=== PATIENT | female | born 1975 | race Caucasian/White ===

== ENCOUNTER 2016-12-14 11:15 | Emergency (ER) | payer BC ==
[~2016-12-14] VITALS: Ht 170.2 cm; Wt 114.0 kg
[2016-12-14] MEDS ORDERED: KETOROLAC 60 MG/2 ML (TORADOL) VIAL IM ONE (11:55)
[2016-12-14] MEDS ORDERED: PROMETHAZINE 25 MG/ML (PHENERGAN) 1 ML VIAL IM ONE (11:55)
[2016-12-14] MEDS ORDERED: HYDROmorphone 2 MG/ML (DILAUDID) 1 ML SYRINGE IM ONE (11:55)
[2016-12-14 12:12] VITALS: BP 129/73
== END 2016-12-14 12:15 | disposition home or self-care (01) ==
LOC: EDUNIT# 11:15 → ED 11:16
DX: G43.909 Migraine, unspecified, not intractable, without status migrainosus (principal)
CPT/HCPCS: 96372; 99283; J1170; J1885; J2550; 99282

== ENCOUNTER 2017-01-05 17:12 | Emergency (ER) | payer BC ==
[~2017-01-05] VITALS: Ht 167.6 cm; Wt 113.6 kg
[2017-01-05 20:05] LABS: BASOPHILS % (AUTO) 0 % (0-2); EOSINOPHILS # (AUTO) 0.1 10^3uL; EOSINOPHILS % (AUTO) 1 % (0-4); LYMPHOCYTES # (AUTO) 0.8 X10^3; MEAN CORPUSCULAR VOLUME 89 FL (80-100); MEAN PLATELET VOLUME 9.8 FL (6.0-9.5); MONOCYTES # (AUTO) 0.5 X10^3; MONOCYTES % (AUTO) 8 % (3-11); NEUTROPHILS # (AUTO) 4.7 X10^3; NEUTROPHILS % (AUTO) 77 % (51-67); PLATELET COUNT 206 10^3uL (150-450); WHITE BLOOD COUNT 6.09 10^3uL (4.0-11.0)
[2017-01-05 20:08] LABS: INFLUENZA VIRUS TYPE A ANTIBOD Positive (NEGATIVE); INFLUENZA VIRUS TYPE B ANTIBOD Negative (NEGATIVE)
[2017-01-05 20:11] LABS: MEAN CORPUSCULAR HEMOGLOBIN 32.6 PG (26.0-34.0); MEAN CORPUSCULAR HGB CONC 36.5 g/dL (31.0-37.0)
[2017-01-05 20:13] LABS: ANION GAP 18.2 MEQ/L (3-15)
[2017-01-05] MEDS ORDERED: KETOROLAC 60 MG/2 ML (TORADOL) VIAL IM ONE (20:55)
[2017-01-05] MEDS ORDERED: ED- AZITHROMYCIN 250 MG (ZITHROMAX) 3 TABLETS/BTL PO ONE (21:05)
[2017-01-05 21:23] VITALS: BP 113/60
== END 2017-01-05 21:15 | disposition home or self-care (01) ==
LOC: ED 17:12
DX: J11.1 Influenza due to unidentified influenza virus with other respiratory manifestations (principal); E11.65 Type 2 diabetes mellitus with hyperglycemia; Z79.4 Long term (current) use of insulin; M79.1 Myalgia; F17.210 Nicotine dependence, cigarettes, uncomplicated
CPT/HCPCS: 36415; 71020; 80048; 85025; 87502; 96372; 99283; J1885

== ENCOUNTER → 2017-01-05 | Outpatient (CLI) | payer BC | LOC: EMS 17:00 | DX: Z53.20 Procedure and treatment not carried out because of patient's decision for unspecified reasons (principal) ==

== ENCOUNTER 2017-01-15 11:50 | Emergency (ER) | payer BC ==
[~2017-01-15] VITALS: Ht 167.6 cm; Wt 113.0 kg
[2017-01-15 12:26] LABS: BASOPHILS % (AUTO) 0 % (0-2); EOSINOPHILS # (AUTO) 0.2 10^3uL; EOSINOPHILS % (AUTO) 3 % (0-4); LYMPHOCYTES # (AUTO) 2.3 X10^3; MEAN CORPUSCULAR VOLUME 90 FL (80-100); MEAN PLATELET VOLUME 9.6 FL (6.0-9.5); MONOCYTES # (AUTO) 0.6 X10^3; MONOCYTES % (AUTO) 8 % (3-11); NEUTROPHILS # (AUTO) 4.5 X10^3; NEUTROPHILS % (AUTO) 59 % (51-67); PLATELET COUNT 330 10^3uL (150-450); WHITE BLOOD COUNT 7.66 10^3uL (4.0-11.0)
[2017-01-15 12:28] LABS: MEAN CORPUSCULAR HEMOGLOBIN 32.7 PG (26.0-34.0); MEAN CORPUSCULAR HGB CONC 36.4 g/dL (31.0-37.0)
[2017-01-15 12:28] LABS: BILIRUBIN,URINE Negative (Negative); CLARITY,URINE Clear; COLOR,URINE Orange; GLUCOSE, URINE (UA) 2+ (Negative); LEUKOCYTE ESTERASE ,URINE Negative (Negative)
[2017-01-15 12:32] LABS: URINE CENTRIFUGED VOLUME 12 mL
[2017-01-15 12:36] LABS: RBC,URINE 0-2 /HPF
[2017-01-15 12:46] LABS: ALBUMIN 4.1 g/dL (3.4-5.0); ANION GAP 17.5 MEQ/L (3-15); CALCULATED IONIZED CALCIUM 4.2 mg/dL (3.8-4.6); TOTAL PROTEIN 7.2 g/dL (6.4-8.5)
[2017-01-15] MEDS ORDERED: INSULIN REGULAR 1 UNIT/0.01 ML DOSE SC ONE (13:20)
[2017-01-15] MEDS ORDERED: KETOROLAC 30 MG/ML (TORADOL) 1 ML VIAL IV ONE (13:50)
[2017-01-15] MEDS ORDERED: SODIUM CHLORIDE FLUSH 10 ML ONE (13:53)
[2017-01-15 14:11] VITALS: BP 119/48
== END 2017-01-15 14:08 | disposition home or self-care (01) ==
LOC: ED 11:51
DX: N39.0 Urinary tract infection, site not specified (principal); E11.65 Type 2 diabetes mellitus with hyperglycemia; Z79.4 Long term (current) use of insulin
CPT/HCPCS: 36415; 80053; 81003; 81015; 85025; 87088; 96361; 96374; 99284; J1815; J1885; J7030; 87077; 87186; 99282

== ENCOUNTER 2017-01-26 17:28 | Emergency (ER) | payer BC ==
[~2017-01-26] VITALS: Ht 167.6 cm; Wt 114.0 kg
[2017-01-26] MEDS ORDERED: HYDROmorphone 2 MG/ML (DILAUDID) 1 ML SYRINGE IM ONE (18:30)
[2017-01-26] MEDS ORDERED: diphenhydrAMINE 50 MG/ML INJ (BENADRYL) IM ONE (18:30)
[2017-01-26] MEDS ORDERED: PROMETHAZINE 25 MG/ML (PHENERGAN) 1 ML VIAL IM ONE (18:30)
[2017-01-26] MEDS ORDERED: KETOROLAC 60 MG/2 ML (TORADOL) VIAL IM ONE (18:30)
[2017-01-26] MEDS ORDERED: HYDROmorphone 1 MG/ML (DILAUDID) SYRINGE IM ONE (19:05)
[2017-01-26] MEDS ORDERED: DEXAMETHASONE 10 MG/ML (DECADRON) VIAL IM ONE (19:05)
[2017-01-26 19:58] VITALS: BP 136/77
== END 2017-01-26 19:55 | disposition home or self-care (01) ==
LOC: ED 17:28
DX: G43.909 Migraine, unspecified, not intractable, without status migrainosus (principal)
CPT/HCPCS: 96372; 99283; J1100; J1170; J1200; J1885; J2550

== ENCOUNTER 2017-02-14 11:02 | Emergency (ER) | payer BC ==
[~2017-02-14] VITALS: Ht 167.6 cm; Wt 112.0 kg
[2017-02-14] MEDS ORDERED: ORPHENADRINE 60 MG/2 ML (NORFLEX) AMP IM ONE (11:55)
[2017-02-14] MEDS ORDERED: ONDANSETRON 4 MG (ZOFRAN) ORAL DISSOLVE TAB PO ONE (11:55)
[2017-02-14] MEDS ORDERED: HYDROmorphone 2 MG/ML (DILAUDID) 1 ML SYRINGE IM ONE (11:55)
[2017-02-14 12:33] VITALS: BP 123/86
== END 2017-02-14 12:34 | disposition home or self-care (01) ==
LOC: ED 11:02
DX: S39.012A Strain of muscle, fascia and tendon of lower back, initial encounter (principal); X50.9XXA Other and unspecified overexertion or strenuous movements or postures, initial encounter; Y93.F9 Activity, other caregiving; Y92.009 Unspecified place in unspecified non-institutional (private) residence as the place of occurrence of the external cause
CPT/HCPCS: 99283; J1170; J2360; 96372

== ENCOUNTER 2017-03-16 18:17 | Emergency (ER) | payer BC ==
[~2017-03-16] VITALS: Ht 167.6 cm; Wt 113.0 kg
[~2017-03-16 18:17] MED LIST: ACET325T38 PO; ALBU8.5H6 IH; ALPR0.5T PO; ASPI1TAB22 PO; ATOR20TA PO; AZIT250T PO; AZIT250T81 PO; BENZ-22 PO; BISO1TAB8 PO; BUSP10TA95 PO; CANA100T PO; CANA1TAB6 PO; CHLO500T2 PO; CIPR-226 PO; CYCL10TA45 PO; DIAZ5TAB3 PO; DIPH25CA79 PO; DIVA250T4 PO; DULO20CA PO; DULO60CA7 PO; EPIN0.3P2 IM; ESCI10TA PO; FLUO20CA42 PO; GBPN100C PO; GFN600TCR PO; HCT25T PO; HYDR-3702 PO; HYDR-3754 PO; HYDR-4131 PO; INDO50CA PO; INSU100V2 SQ; INSU100V32 SQ; INSU100V8 SC; INSU300I SQ; LISI-595 PO; LISI2.5T85 PO; METF500T PO; METO25TA60 PO; NFMET1000 PO; OMEP20TA PO; ONDA4TAB11 PO; ONDA8TAB6 PO; ONDAN4ODT PO; OXYC-109 PO; OXYC1TAB87 PO; PHEN-639 PO; PRCD5U PO; PREG25CA PO; PREG50C PO; PROM25TA5 PO; SULF-221 PO; SUMA6NDL SQ; TRM50T PO
--- OUTSIDE RECORDS SUMMARY | 2017-03-16 18:22 | XMS REPORT | Continuity of Care Document ---
Author Author [facility] Address Unknown Phone Unavailable Care Team Providers Care Er Registrar Name Role Phone BRIA, COSMO Ascencio MD PCP [phone] Insurance Providers Payer Name Policy Number Subscriber Name Relationship [facility] [id number] Suellen Howard 01 Advance Directives Directive Response Recorded Date/Time Advanced Directives No 01/26/17 5:45pm Type Living Will 01/26/17 5:45pm Chief Complaint and Reason for Visit Chief Complaint Pain Reason for Visit [id number] Problems Active Problems Medical Problem Onset Date Status ALLERGY, UNSPECIFIED ~02/20/2014 Resolved Abdominal pain 10/12/2014 Resolved Abdominal pain ~10/12/2014 Resolved Abdominal pain ~03/09/2015 Resolved Acute and chronic respiratory failure with hypoxia ~11/18/2015 Chronic Acute pancreatitis 04/10/2013 Resolved Allergic reaction ~05/30/2016 Resolved Ankle sprain ~01/05/2017 Acute Anxiety disorder Unknown Chronic Back pain ~07/02/2016 Resolved Bilateral leg edema Unknown Acute Biliary colic ~10/12/2014 Resolved Bronchitis Unknown Chronic Bronchospasm, acute Unknown Resolved Cervical strain ~07/02/2016 Chronic Cholecystectomy 04/26/2013 Resolved Concussion ~07/02/2016 Resolved Cough Unknown Acute DKA (diabetic ketoacidoses) 06/06/2015 Resolved Dehydration 06/06/2015 Resolved Diabetes mellitus Unknown Chronic Fall ~07/02/2016 Resolved Gastroenteritis Unknown Resolved Gastroesophageal reflux disease 03/18/2013 Resolved Headache ~08/16/2016 Chronic Hyperglycemia Unknown Acute Influenza ~01/05/2017 Acute Knee pain, left ~01/05/2017 Acute Lower back pain Unknown Resolved Lumbar strain ~07/02/2016 Chronic Migraine 12/17/2015 Chronic Migraine ~08/05/2014 Chronic Migraine ~09/16/2014 Chronic Migraine ~05/23/2015 Chronic Migraine ~09/09/2016 Chronic Opioid dependence ~06/22/2016 Chronic Pedal edema ~07/06/2016 Acute Pneumonia ~12/18/2014 Resolved Sore throat symptom ~02/20/2014 Resolved Upper respiratory infection ~12/18/2014 Resolved Urinary tract infection Unknown Acute Vomiting ~03/09/2015 Resolved Wheezing Unknown Chronic Medications Current Home Medications Medication Dose Units Route Directions Days/Qty Instructions Start Date Insulin Lispro (Insulin Humalog) 100 Unit/1 Ml 35-40 Units Sub-Q Twice A Day With Meals TAKES WITH LUNCH AND SUPPER. 06/27/12 Atorvastatin 20 Mg 20 Mg ORAL Daily 06/27/12 Diphenhydramine Hcl 25 Mg 25 Mg ORAL Every 6 Hours as needed for Itching 02/24/14 Aspirin/Acetaminophen/Caffeine 1 Each 1 Each ORAL As Needed 08/05/14 Acetaminophen 325 Mg 650 Mg ORAL Every 4HRS as needed for Pain AD Divalproex Sodium 250 Mg 250 Mg ORAL Twice A Day 04/02/16 Insulin Glargine,Hum.rec.anlog 300 Unit/1 Ml 300 Unit Sub-Q As Directed 05/08/16 Metoprolol Tartrate 25 Mg 25 Mg ORAL Daily 05/08/16 Epinephrine 0.3 Mg/0.3 Ml 0.3 Mg INTAMUSCULAR As Directed 1 05/30/16 Hydrochlorothiazide 25 Mg 25 Mg ORAL Daily 14 07/06/16 Canagliflozin 100 Mg 100 Mg ORAL As Directed 09/09/16 Promethazine/Codeine (Promethazine/Codeine 6.25MG-10MG/5ML) 5 Ml 5 Ml ORAL Four Times Daily as needed for Cough 60 11/06/16 Duloxetine Hcl 20 Mg Unknown Dose ORAL Daily 02/14/17 Canagliflozin/Metformin Hcl 1 Each 1 Each ORAL Daily 2 02/14/17 Oxycodone/Acetaminophen 1 Tab 1-2 Tab ORAL Every 4HRS as needed for Pain 25 02/14/17 Chlorzoxazone 500 Mg 500 Mg ORAL Four Times Daily 40 02/14/17 Past Home Medications Medication Directions Ordered Status Insulin Glargine,Hum.rec.anlog 100 Unit/1 Ml Vial, 40 Units Sub-Q Bedtime 04/03 Discontinued Metformin Hcl 500 Mg Tablet, 1000 Mg Oral Daily 06/27/12 Discontinued Lisinopril 2.5 Mg Tablet, 10 Mg Oral Daily 06/27/12 Discontinued Diphenhydramine Hcl 25 Mg Capsule, 50 Mg Oral As Needed 06/27/12 Discontinued Alprazolam 0.5 Mg Tablet, 0.5 Mg Oral As Needed 06/27/12 Discontinued Promethazine Hcl 25 Mg Tablet, 1 Tab Oral Q 6H Prn 06/27/12 Discontinued Fluoxetine Hcl 20 Mg Cap, 1 Cap Oral Daily 12/05/12 Discontinued Ciprofloxacin Hcl 250 Mg Tablet, Tab Oral Twice A Day 12/05/12 Discontinued Phenazopyridine Hcl 100 Mg Tablet, Mg Oral Twice A Day 12/05/12 Discontinued Hydrocodone Bit/Acetaminophen 1 Tab Tab, 1 Tab Oral Q 4H Prn 03/18/13 Discontinued Escitalopram Oxalate 10 Mg Tablet, 10 Mg Oral Daily 04/09/13 Discontinued Metformin Hcl 1,000 Mg Tab, 1000 Mg Oral Daily 04/12/13 Discontinued Lisinopril 10 Mg Tab, 10 Mg Oral Daily 04/12/13 Discontinued Ondansetron Hcl 8 Mg Tablet, 8 Mg Oral Every 6 Hours as needed 04/12/13 Discontinued Hydrocodone Bit/Acetaminophen 1 Tab Tab, 1 Tab Oral Every 6 Hours as needed 04/12/13 Discontinued Bisoprolol/Hydrochlorothiazide (Ziac 2.5MG/6.25MG) 1 Each Tablet, 1 Each Oral Daily 04/26/13 Discontinued Sumatriptan Succinate 6 Mg/0.5 Ml Ndl.fr.inj, 6 Mg Sub-Q As Needed 08/05/14 Discontinued Diazepam 5 Mg Tablet, 5 Mg Oral Every 6 Hours as needed for Muscle Spasms 07/06 Discontinued Oxycodone/Acetaminophen 1 Tab Tablet, 1 Tab Oral Every 6 Hours as needed for Pain 10/30/14 Discontinued Azithromycin 250 Mg Tablet, 250 Mg Oral Daily 12/19/14 Discontinued Benzonatate 100 Mg Capsule, 100 Mg Oral Three Times A Day 12/19/14 Discontinued Acetaminophen/Hydrocodone Bitart 1 Each Tablet, 1-2 Tab Oral Every 6 Hours as needed for Pain 03/09/15 Discontinued Cyclobenzaprine Hcl 10 Mg Tablet, 10 Mg Oral Three Times A Day as needed for Spasms 05/26/15 Discontinued Insulin Glargine,Hum.rec.anlog (Lantus) 1 Unit/0.01 Ml Soln, 30 Unit Subcutaneous Bedtime 06/08/15 Discontinued Azithromycin 6 Tab/Pkt Tablet, 250 Mg Oral See Instructions 11/17/15 Discontinued Albuterol Sulfate 1 Inhaler Hfa.aer.ad, 2 Puff Respiratory (Inhalation) Every 4HRS as needed for Dyspnea 11/22/15 Discontinued Guaifenesin 600 Mg Tab, 1200 Mg Oral Twice A Day 11/22/15 Discontinued Ondansetron 4 Mg Tab.rapdis, 4 Mg Oral Every 6 Hours as needed for Nausea Discontinued Omeprazole 20 Mg Tablet.dr, 20 Mg Oral Daily 11/22/15 Discontinued Oxycodone/Acetaminophen 1 Each Tablet, 1 Tab Oral Every 4HRS as needed for Pain 12/10/15 Discontinued Cyclobenzaprine Hcl 10 Mg Tablet, 10 Mg Oral Three Times A Day as needed for Spasms 12/10/15 Discontinued Duloxetine Hcl 60 Mg Capsule.dr, 60 Mg Oral Daily 12/17/15 Discontinued Pregabalin 25 Mg Capsule, 150 Cap Oral Twice A Day 12/17/15 Discontinued Oxycodone/Acetaminophen 1 Tab Tablet, 1 Tab Oral Every 6 Hours as needed for Headache 12/17/15 Discontinued Tramadol Hcl (Ultram) 50 Mg Tablet, 1-2 Tab Oral Every 6 Hours as needed for Pain 01/19/16 Discontinued Ondansetron Hcl 4 Mg Tab.rapdis, 4 Mg Oral Every 4HRS 02/24/16 Discontinued Buspirone Hcl (Buspar) 10 Mg Tablet, 10 Mg Oral Daily 02/27/16 Discontinued Pregabalin 50 Mg Cap, 150 Mg Oral Twice A Day 03/02/16 Discontinued Oxycodone/Acetaminophen 1 Tab Tablet, 1 Tab Oral Three Times A Day as needed for Pain 03/02/16 Discontinued Divalproex Sodium 250 Mg Tablet.dr, 250 Mg Oral Daily 05/08/16 Discontinued Gabapentin (Neurontin) 100 Mg Capsule, 100 Mg Oral Twice A Day 06/05/16 Discontinued Sulfamethoxazole/Trimethoprim (Bactrim Ds 800MG/160MG) 1 Each Tablet, 1 Each Oral Twice A Day 06/05/16 Discontinued Cyclobenzaprine Hcl 10 Mg Tablet, 10 Mg Oral Three Times A Day as needed for Spasms 07/02/16 Discontinued Oxycodone/Acetaminophen 1 Tab Tablet, 1 Tab Oral Every 4HRS as needed for Pain 07/02/16 Discontinued Indomethacin 50 Mg Capsule, 50 Mg Oral Three Times A Day as needed for Pain 07/05/16 Discontinued Azithromycin 250 Mg Tablet, 250 Mg Oral Daily 01/05/17 Discontinued Social History Social History Problem Response Recorded Date/Time Onset Date Status Exposure to occupational hazards No 11/19/2015 2:08am Query Response Start Date Stop Date Smoking Status Current every day smoker Hospital Discharge Instructions No hospital discharge instructions. Plan of Care Discharge Date 02/14/17 12:34pm Disposition 01 HOME OR SELF-CARE Condition at Discharge Stable Instructions/Education Provided Low Back Pain (DC) Prescriptions See Medication Section Referrals COSMO FRASER MD - Additional Instructions/Education use naproxen 375 mgone twice daily on a regular basis. Heat or ice for comfort. Rest as much as possible the next. Follow-up with PCP next week. Some of your test results may not be complete prior to your leaving the Emergency Department. The Emergency Department is not authorized to give test results over the phone. Please contact the doctor's office listed in this packet of information for your final results. Follow up with your primary care physician or return to the Emergency Department for worsening or worrisome symptoms. * Emergency Department phone number: [phone], x [phone]* MEDICAL RECORD If you need copies of your X-rays, call [phone]. If you need copies of your medical record, including lab results, a signed authorization for release of records will be required. A telephone call for release of Health Information is not allowed. BILLING Billing can sometimes be confusing and frustrating. To help avoid confusion in the future, please take a moment to acquaint yourself with the billing parties for services. SERVICE BILLING [employer] Emergency Room Services [facility] Physician Services [facility] X-[facility] [place] [facility] Patients will receive bills for services from the appropriate provider. If you have any questions about your [facility] bill, our staff will be happy to assist you. Please call [phone], and ask for the billing department. THANK YOU for choosing [facility] as your emergency care provider! Care Plan and Goals ~~Discharge Care Plan~~ Problem: Back pain Goal: Decreased level of pain. Return to usual activities. Instructions: Take medication(s) as directed; follow up with your primary care physician as directed; follow patient home care instructions. Apply ice or heat to site for comfort. Functional Status No functional status results. Allergies, Adverse Reactions, Alerts Allergen Type Severity Reaction Status Last Updated Iodine Allergy Unknown Active 01/15/17 shellfish derived Allergy Severe Active 01/15/17 Immunizations Name Given Type Status Date Pneumonia Vaccine Received if Current 04/12/12 Historical Historical Date Influenza Vaccine Received if Current 08/18/16 Historical Historical Vital Signs Acute Vital Signs Vital Response Date/Time Temperature (Fahrenheit) 97.2 02/14/2017 12:33pm Pulse 84 bpm 02/14/2017 12:33pm Respirations 16 02/14/2017 12:33pm Results Laboratory Results Test Name Result Units Flags Reference Collection Date/Time Result Date/ Time Comments White Blood Count 7.66 10^3uL 4.0-11.0 01/15/2017 12:20pm 01/15/2017 12 :28pm Red Blood Count 4.41 10^6uL 4.00-5.00 01/15/2017 12:20pm 01/15/2017 12: 28pm Hemoglobin 14.4 g/dL 12.0-15.5 01/15/2017 12:20pm 01/15/2017 12:28pm Hematocrit 39.60 % 35.00-45.00 01/15/2017 12:20pm 01/15/2017 12:28pm Mean Corpuscular Volume 90 FL 80-100 01/15/2017 12:20pm 01/15/2017 12: 28pm Mean Corpuscular Hemoglobin 32.7 PG 26.0-34.0 01/15/2017 12:20pm 2016 12:28pm Mean Corpuscular Hemoglobin Concent 36.4 g/dL 31.0-37.0 01/15/2017 12: 20pm 01/15/2017 12:28pm Red Cell Distribution Width 11.7 % L 11.8-15.6 01/15/2017 12:20pm 2016 12:28pm Platelet Count 330 10^3uL # 150-450 01/15/2017 12:20pm 01/15/2017 12: 28pm Mean Platelet Volume 9.6 FL H 6.0-9.5 01/15/2017 12:20pm 01/15/2017 12: 28pm Neutrophils (%) (Auto) 59 % 51-67 01/15/2017 12:20pm 01/15/2017 12: 28pm Lymphocytes (%) (Auto) 30 % 20-46 01/15/2017 12:20pm 01/15/2017 12: 28pm Monocytes (%) (Auto) 8 % 3-11 01/15/2017 12:20pm 01/15/2017 12:28pm Eosinophils (%) (Auto) 3 % 0-4 01/15/2017 12:20pm 01/15/2017 12:28pm Basophils (%) (Auto) 0 % 0-2 01/15/2017 12:20pm 01/15/2017 12:28pm Neutrophils # (Auto) 4.5 X10^3 01/15/2017 12:20pm 01/15/2017 12:28pm Lymphocytes # (Auto) 2.3 X10^3 01/15/2017 12:20pm 01/15/2017 12:28pm Monocytes # (Auto) 0.6 X10^3 01/15/2017 12:20pm 01/15/2017 12:28pm Eosinophils # (Auto) 0.2 10^3uL 01/15/2017 12:20pm 01/15/2017 12: 28pm Basophils # (Auto) 0.0 10^3uL 01/15/2017 12:20pm 01/15/2017 12:28pm Volume Urine Centrifuged 12 mL 01/15/2017 12:15pm 01/15/2017 12: 36pm Urine Collection Type CLEAN CATCH 01/15/2017 12:15pm 01/15/2017 12: 36pm Urine Color [place] H 01/15/2017 12:15pm 01/15/2017 12:28pm Urine Clarity Clear 01/15/2017 12:15pm 01/15/2017 12:28pm Urine pH 5.0 5.0 - 8.0 01/15/2017 12:15pm 01/15/2017 12:28pm Urine Specific [place] 1.015 1.005-1.030 01/15/2017 12:15pm 2016 12:28pm Urine Protein Trace H Negative 01/15/2017 12:15pm 01/15/2017 12:28pm Urine Glucose (UA) 2+ H Negative 01/15/2017 12:15pm 01/15/2017 12: 28pm Urine Blood Trace-intact H Negative 01/15/2017 12:15pm 01/15/2017 12: 28pm Urine Ketones Trace H Negative 01/15/2017 12:15pm 01/15/2017 12:28pm Urine Nitrite Positive H Negative 01/15/2017 12:15pm 01/15/2017 12: 28pm Urine Bilirubin Negative Negative 01/15/2017 12:15pm 01/15/2017 12: 28pm Urine Urobilinogen 1.0 mg/dL 0.2-1.0 01/15/2017 12:15pm 01/15/2017 12: 28pm Urine Leukocyte Esterase Negative Negative 01/15/2017 12:15pm 2016 12:28pm Urine Microscopic RBC 0-2 /HPF 01/15/2017 12:15pm 01/15/2017 12:36pm Urine WBC 10-20 /HPF H 01/15/2017 12:15pm 01/15/2017 12:36pm Urine Bacteria 2+ /HPF H 01/15/2017 12:15pm 01/15/2017 12:36pm Urine Squamous Epithelial Cells 10-20 /LPF 01/15/2017 12:15pm 2016 12:36pm Urine Mucus Rare 01/15/2017 12:15pm 01/15/2017 12:36pm Sodium Level 137 mmol/L 135-150 01/15/2017 12:20pm 01/15/2017 12:51pm Potassium Level 4.7 mmol/L # 3.5-5.1 01/15/2017 12:20pm 01/15/2017 12: 51pm Chloride Level 104 mmol/L 98-108 01/15/2017 12:20pm 01/15/2017 12:51pm Carbon Dioxide Level 20 mmol/L L 22-01/15/2017 12:01/15/2017 12: 51pm Anion Gap 17.5 MEQ/L H 3-15 01/15/2017 12:01/15/2017 12:51pm Blood Urea Nitrogen 9 mg/dL 7-18 01/15/2017 12:01/15/2017 12:51pm Creatinine 0.47 mg/dL L 0.6-1.2 01/15/2017 12:01/15/2017 12:51pm BUN/Creatinine Ratio 19 10-01/15/2017 12:01/15/2017 12:51pm Estimat Glomerular Filtration Rate 175.0 01/15/2017 12:2016 12:51pm Estimated GFR (Non- 144.6 01/15/2017 12:2016 12:51pm Glucose Level 292 mg/dL H 70-110 01/15/2017 12:01/15/2017 12:51pm Calculated Osmolality 274 mosm/L L 280-300 01/15/2017 12:2016 12:51pm Calcium Level 9.5 mg/dL 8.8-10.8 01/15/2017 12:01/15/2017 12:51pm Calcium/Ionized Calcium Ratio 4.2 mg/dL 3.8-4.6 01/15/2017 12: 12:51pm Total Bilirubin 1.0 mg/dL # 0.1-1.0 01/15/2017 12:01/15/2017 12: 51pm Alkaline Phosphatase 115 U/L 38-126 01/15/2017 12:01/15/2017 12: 51pm Aspartate Amino Transf (AST/SGOT) 32 U/L 15-37 01/15/2017 12:01/15 12:51pm Alanine Aminotransferase (ALT/SGPT) 40 U/L 30-65 01/15/2017 12: 12:51pm Total Protein 7.2 g/dL 6.4-8.5 01/15/2017 12:01/15/2017 12:51pm Albumin 4.1 g/dL 3.4-5.0 01/15/2017 12:20pm 01/15/2017 12:51pm Albumin/Globulin Ratio 1.322 1.1-1.8 01/15/2017 12:20pm 01/15/2017 12 :51pm Procedures Procedure Status Date Provider(s) ROUTINE VENIPUNCTURE Completed 01/15/17 COMPREHEN METABOLIC PANEL Completed 01/15/17 URINALYSIS AUTO W/O SCOPE Completed 01/15/17 MICROSCOPIC EXAM OF URINE Completed 01/15/17 COMPLETE CBC W/AUTO DIFF WBC Completed 01/15/17 URINE BACTERIA CULTURE Completed 01/15/17 HYDRATE IV INFUSION ADD-ON Completed 01/15/17 THER/PROPH/DIAG INJ IV PUSH Completed 01/15/17 EMERGENCY DEPT VISIT Completed 01/15/17 Completed 01/15/17 Completed 01/15/17 Completed 01/15/17 THER/PROPH/DIAG INJ SC/IM Completed 01/26/17 EMERGENCY DEPT VISIT Completed 01/26/17 Completed 01/26/17 Completed 01/26/17 Completed 01/26/17 Completed 01/26/17 Completed 01/26/17 Completed 01/26/17 Encounters Encounter Location Arrival/Admit Date Discharge/Depart Date Attending Provider Departed Emergency Room [facility] 02/14/17 11:02am 02/14/17 12: 34pm JAYDA LEDEZMA MD Departed Emergency Room [facility] 01/26/17 5:28pm 01/26/17 7:55pm KEDAR HARVEY DO Departed Emergency Room [facility] 01/15/17 11:51am 01/15/17 2:08pm TONI KNAPP MD Recent Diagnosis
[2017-03-16] MEDS ORDERED: KETOROLAC 30 MG/ML (TORADOL) 1 ML VIAL IV ONE (19:10)
[2017-03-16] MEDS ORDERED: ONDANSETRON 2 MG/ML (Z0FRAN) 2 ML VIAL IV ONE (19:10)
[2017-03-16] MEDS ORDERED: LORazepam 2 MG/ML (ATIVAN) 1 ML VIAL IV ONE (19:10)
[2017-03-16] MEDS ORDERED: HYDROmorphone 1 MG/ML (DILAUDID) SYRINGE IV ONE ×2 (19:10→21:10)
[2017-03-16 19:54] LABS: BASOPHILS % (AUTO) 1 % (0-2); EOSINOPHILS # (AUTO) 0.1 10^3uL; EOSINOPHILS % (AUTO) 2 % (0-4); LYMPHOCYTES # (AUTO) 2.6 X10^3; MEAN CORPUSCULAR HGB CONC 34.7 g/dL (31.0-37.0); MEAN CORPUSCULAR VOLUME 92 FL (80-100); MEAN PLATELET VOLUME 9.6 FL (6.0-9.5); MONOCYTES # (AUTO) 0.5 X10^3; MONOCYTES % (AUTO) 8 % (3-11); NEUTROPHILS # (AUTO) 2.9 X10^3; NEUTROPHILS % (AUTO) 47 % (51-67); PLATELET COUNT 278 10^3uL (150-450); WHITE BLOOD COUNT 6.12 10^3uL (4.0-11.0)
[2017-03-16 20:06] LABS: ALBUMIN 4.3 g/dL (3.4-5.0); ANION GAP 17.1 MEQ/L (3-15); CALCULATED IONIZED CALCIUM 4.1 mg/dL (3.8-4.6); TOTAL PROTEIN 7.3 g/dL (6.4-8.5)
[2017-03-16 20:07] LABS: MEAN CORPUSCULAR HEMOGLOBIN 31.9 PG (26.0-34.0)
[2017-03-16] MEDS ORDERED: HYDROmorphone 1 MG/ML (DILAUDID) SYRINGE ONE (20:14)
[2017-03-16] MEDS ORDERED: ONDANSETRON 2 MG/ML (Z0FRAN) 2 ML VIAL ONE (20:15)
[2017-03-16] MEDS ORDERED: KETOROLAC 30 MG/ML (TORADOL) 1 ML VIAL ONE (20:15)
[2017-03-16] MEDS ORDERED: LORazepam 2 MG/ML (ATIVAN) 1 ML VIAL ONE (20:17)
[2017-03-16 20:52] LABS: BILIRUBIN,URINE Negative (Negative); CLARITY,URINE Clear; COLOR,URINE Yellow; GLUCOSE, URINE (UA) 2+ (Negative); LEUKOCYTE ESTERASE ,URINE Negative (Negative); PH,URINE 5.5 (5.0 - 8.0); UROBILINOGEN,URINE 0.2 mg/dL (0.2-1.0)
[2017-03-16 21:32] VITALS: BP 119/86
== END 2017-03-16 21:33 | disposition home or self-care (01) ==
LOC: ED 18:18
DX: G43.909 Migraine, unspecified, not intractable, without status migrainosus (principal)
CPT/HCPCS: 36415; 80053; 81003; 85025; 86140; 96374; 96375; 96376; 99283; J1170; J1885; J2060; J2405; 99282

== ENCOUNTER 2017-03-20 00:28 | Emergency (ER) | payer BC ==
[~2017-03-20] VITALS: Ht 167.6 cm; Wt 112.7 kg
[2017-03-20] MEDS ORDERED: ONDANSETRON 2 MG/ML (Z0FRAN) 2 ML VIAL IV ONE (00:45)
[2017-03-20] MEDS ORDERED: HYDROmorphone 1 MG/ML (DILAUDID) SYRINGE IV ONE ×2 (00:45→02:15)
[2017-03-20] MEDS: SODIUM CHLORIDE FLUSH 10 ML SYR IV PRN ×2 (01:27→02:15)
[2017-03-20 01:33] LABS: BASOPHILS % (AUTO) 1 % (0-2); EOSINOPHILS # (AUTO) 0.2 10^3uL; EOSINOPHILS % (AUTO) 2 % (0-4); LYMPHOCYTES # (AUTO) 2.6 X10^3; MEAN CORPUSCULAR HGB CONC 35.1 g/dL (31.0-37.0); MEAN CORPUSCULAR VOLUME 92 FL (80-100); MEAN PLATELET VOLUME 9.5 FL (6.0-9.5); MONOCYTES # (AUTO) 0.6 X10^3; MONOCYTES % (AUTO) 9 % (3-11); NEUTROPHILS # (AUTO) 2.9 X10^3; NEUTROPHILS % (AUTO) 46 % (51-67); PLATELET COUNT 266 10^3uL (150-450); WHITE BLOOD COUNT 6.27 10^3uL (4.0-11.0)
[2017-03-20 01:36] LABS: MEAN CORPUSCULAR HEMOGLOBIN 32.4 PG (26.0-34.0)
[2017-03-20 01:40] LABS: ALBUMIN 3.8 g/dL (3.4-5.0); ANION GAP 16.6 MEQ/L (3-15); CALCULATED IONIZED CALCIUM 4.1 mg/dL (3.8-4.6); TOTAL PROTEIN 6.6 g/dL (6.4-8.5)
[2017-03-20 02:36] VITALS: BP 110/66
== END 2017-03-20 02:35 | disposition home or self-care (01) ==
LOC: ED 00:29
DX: G43.909 Migraine, unspecified, not intractable, without status migrainosus (principal); F17.210 Nicotine dependence, cigarettes, uncomplicated
CPT/HCPCS: 36415; 80053; 85025; 96361; 96374; 96375; 96376; 99283; J1170; J2405; J7030; 99282

== ENCOUNTER 2017-03-21 17:07 | Emergency (ER) | payer BC ==
[~2017-03-21] VITALS: Ht 167.6 cm; Wt 114.4 kg
[2017-03-21] MEDS ORDERED: PROMETHAZINE 25 MG/ML (PHENERGAN) 1 ML VIAL IM ONE (17:50)
[2017-03-21] MEDS ORDERED: DEXAMETHASONE 10 MG/ML (DECADRON) VIAL IM ONE (17:50)
[2017-03-21] MEDS ORDERED: HYDROmorphone 2 MG/ML (DILAUDID) 1 ML SYRINGE IM ONE (17:50)
[2017-03-21] MEDS ORDERED: PROMETHAZINE HCL INJ 12.5 MG in SODIUM CHLORIDE 25 ML IV ONE (18:05)
[2017-03-21] MEDS ORDERED: SODIUM CHLORIDE FLUSH 3 ML SYR IV ONE (18:10)
[2017-03-21 18:14] LABS: BASOPHILS % (AUTO) 1 % (0-2); EOSINOPHILS # (AUTO) 0.1 10^3uL; EOSINOPHILS % (AUTO) 2 % (0-4); MEAN CORPUSCULAR HEMOGLOBIN 32.3 PG (26.0-34.0); MEAN CORPUSCULAR HGB CONC 34.5 g/dL (31.0-37.0); MEAN CORPUSCULAR VOLUME 94 FL (80-100); MEAN PLATELET VOLUME 9.6 FL (6.0-9.5); MONOCYTES # (AUTO) 0.4 X10^3; MONOCYTES % (AUTO) 7 % (3-11); NEUTROPHILS # (AUTO) 3.1 X10^3; NEUTROPHILS % (AUTO) 54 % (51-67); PLATELET COUNT 299 10^3uL (150-450); WHITE BLOOD COUNT 5.68 10^3uL (4.0-11.0)
[2017-03-21 18:15] LABS: BILIRUBIN,URINE Negative (Negative); CLARITY,URINE Clear; COLOR,URINE Yellow; GLUCOSE, URINE (UA) 2+ (Negative); LEUKOCYTE ESTERASE ,URINE Negative (Negative); PH,URINE 5.5 (5.0 - 8.0); UROBILINOGEN,URINE 0.2 mg/dL (0.2-1.0)
[2017-03-21] MEDS ORDERED: HYDROmorphone 2 MG/ML (DILAUDID) 1 ML SYRINGE IV ONE (18:20)
[2017-03-21] MEDS ORDERED: DEXAMETHASONE 10 MG/ML (DECADRON) VIAL IV ONE (18:20)
[2017-03-21 18:23] LABS: AMPHETAMINE SCREEN, URINE Negative (Negative); PROPOXYPHENE STAT NEGATIVE (NEGATIVE)
[2017-03-21 18:24] LABS: CANNABINOID SCREEN, URINE Negative (Negative); METHAMPHETAMINE SCREEN URINE S NEGATIVE (NEGATIVE); OPIATE SCREEN URINE Negative (Negative)
[2017-03-21 18:28] LABS: ALBUMIN 4.3 g/dL (3.4-5.0); ALKALINE PHOSPHATASE 125 U/L (38-126); ANION GAP 15.9 MEQ/L (3-15); BUN/CREATININE RATIO 17 (10-20); TOTAL PROTEIN 7.2 g/dL (6.4-8.5)
[2017-03-21] MEDS ORDERED: diphenhydrAMINE 50 MG/ML INJ (BENADRYL) IV ONE (18:55)
[2017-03-21] MEDS: SODIUM CHLORIDE FLUSH 10 ML SYR IV PRN ×2 (19:11→20:02)
--- NOTE | 2017-03-21 19:28 | Diagnostic Imaging Report ---
PROCEDURE: CT head without contrast. TECHNIQUE: Multiple contiguous axial images were obtained through the brain without the use of intravenous contrast. INDICATION: Headache, dizziness. Following down and slurring words x4 days. COMPARISON: 07/02/2016 FINDINGS: There is no midline shift or mass effect. The ventricles and sulci are unremarkable. No evidence for acute intracranial hemorrhage, abnormal extra-axial fluid collections or cerebral edema is present. The basilar cisterns are unremarkable. The visualized paranasal sinuses and mastoid air cells are clear. The bony calvarium is intact. IMPRESSION: Negative appearing noncontrast CT of the head. Dictated by: Dictated on workstation # [id number]
[2017-03-21] MEDS ORDERED: morphine INJ 4 MG/ML 1 ML SYRINGE IV ONE (19:30)
[2017-03-21 20:16] VITALS: BP 137/77
--- NOTE | 2017-03-21 20:18 | NUR ---
I asked pt how her pain was. She responded with "I am at about a 7, but i live at a 7 so I can go home."
== END 2017-03-21 20:13 | disposition home or self-care (01) ==
LOC: ED 17:09
DX: G43.909 Migraine, unspecified, not intractable, without status migrainosus (principal)
CPT/HCPCS: 36415; 70450; 80053; 80307; 80320; 80329; 81003; 84443; 84703; 85025; 86140; 96361; 96365; 96375; 99284; J1100; J1170; J1200; J2270; J2550; J7030; 99283

== ENCOUNTER 2017-03-30 20:38 | Emergency (ER) | payer BC ==
[~2017-03-30] VITALS: Ht 167.6 cm; Wt 111.4 kg
--- OUTSIDE RECORDS SUMMARY | 2017-03-30 20:43 | XMS REPORT | Continuity of Care Document ---
Author Author [facility] Address Unknown Phone Unavailable Care Team Providers Care Brick Pitcher Name Role Phone BRIA, COSMO Ascencio MD PCP [phone] Insurance Providers Payer Name Policy Number Subscriber Name Relationship [facility] [id number] Suellen Howard 01 Advance Directives Directive Response Recorded Date/Time Advanced Directives No 03/21/17 5:08pm Type Living Will 03/16/17 6:27pm Chief Complaint and Reason for Visit Chief Complaint Pain Reason for Visit Migraine Problems Active Problems Medical Problem Onset Date [...] Migraine ~09/16/2014 Chronic Migraine ~05/23/2015 Chronic Migraine ~03/20/2017 Chronic Opioid dependence ~06/22/2016 Chronic Pedal edema [...] discharge instructions. Plan of Care Discharge Date 03/21/17 8:13pm Disposition 01 HOME OR SELF-CARE Condition at Discharge Stable Instructions/Education Provided Migraine Headache (DC) Prescriptions See Medication Section Referrals COSMO FRASER MD - Additional Instructions/Education ED SCOT if any worse. See your neurologist. Some of your test results may not [...] worrisome symptoms. * Emergency Department phone number: [phone], x [phone]* MEDICAL RECORD If you need copies of your X-rays, call [phone]. If you need copies of [...] the billing parties for services. SERVICE BILLING [employer] Emergency Room Services [facility] Physician Services [facility] X-rays [place] [facility] Patients will receive bills for services from the appropriate provider. If you have any questions about your [facility] bill, our staff will be happy to assist you. Please call [phone], and ask for the billing department. THANK YOU for choosing [facility] as your emergency care provider! Care Plan and Goals ~~Discharge Care Plan~~ Problem: Headache Goal: Decreased level of pain. Return to usual activities. Instructions: Take medication(s) as directed; follow up with primary care physician as directed; follow patient home care instructions. Home to rest in a quiet dark room. Functional Status No functional status results. Allergies, Adverse Reactions, Alerts Allergen Type Severity Reaction Status Last Updated Iodine Allergy Unknown Active 03/16/17 Hydromorphone Allergy Mild Rash Active 03/21/17 shellfish derived Allergy Severe Active 03/16/17 Immunizations Name Given Type Status Date Pneumonia Vaccine Received if Current 04/12/12 Historical Historical Date Influenza Vaccine Received if Current 08/18/16 Historical Historical Vital Signs Acute Vital Signs Vital Response Date/Time Temperature (Fahrenheit) 97.4 03/21/2017 8:16pm Pulse 90 bpm 03/21/2017 8:16pm Respirations 18 03/21/2017 8:16pm Height 5 ft 6 in Weight 252 lb Body Mass Index 40.0 kg/m^2 Results Laboratory Results Test Name Result Units Flags Reference Collection Date/Time Result Date/ Time Comments White Blood Count 6.12 10^3uL 4.0-11.0 03/16/2017 7:pm 03/16/2017 8: 07pm Red Blood Count 4.36 10^6uL 4.00-5.00 03/16/2017 7:pm 03/16/2017 8: 07pm Hemoglobin 13.9 g/dL 12.0-15.5 03/16/2017 7:pm 03/16/2017 8:07pm Hematocrit 40.10 % 35.00-45.00 03/16/2017 7:pm 03/16/2017 8:07pm Mean Corpuscular Volume 92 FL 80-100 03/16/2017 7:pm 03/16/2017 8: 07pm Mean Corpuscular Hemoglobin 31.9 PG 26.0-34.0 03/16/2017 7:2016 8:07pm Mean Corpuscular Hemoglobin Concent 34.7 g/dL 31.0-37.0 03/16/2017 7: 03/16/2017 8:07pm Red Cell Distribution Width 12.3 % 11.8-15.6 03/16/2017 7:2016 8:07pm Platelet Count 278 10^3uL 150-450 03/16/2017 7:03/16/2017 8:07pm Mean Platelet Volume 9.6 FL H 6.0-9.5 03/16/2017 7:03/16/2017 8: 07pm Neutrophils (%) (Auto) 47 % L 51-67 03/16/2017 7:03/16/2017 8:07pm Lymphocytes (%) (Auto) 42 % 20-46 03/16/2017 7:03/16/2017 8:07pm Monocytes (%) (Auto) 8 % 3-11 03/16/2017 7:03/16/2017 8:07pm Eosinophils (%) (Auto) 2 % 0-4 03/16/2017 7:03/16/2017 8:07pm Basophils (%) (Auto) 1 % 0-2 03/16/2017 7:03/16/2017 8:07pm Neutrophils # (Auto) 2.9 X10^3 03/16/2017 7:03/16/2017 8:07pm Lymphocytes # (Auto) 2.6 X10^3 03/16/2017 7:03/16/2017 8:07pm Monocytes # (Auto) 0.5 X10^3 03/16/2017 7:03/16/2017 8:07pm Eosinophils # (Auto) 0.1 10^3uL 03/16/2017 7:03/16/2017 8:07pm Basophils # (Auto) 0.1 10^3uL 03/16/2017 7:03/16/2017 8:07pm Urine Collection Type CLEAN CATCH 03/16/2017 7:03/16/2017 9: 05pm Urine Color Yellow 03/16/2017 7:4503/16/2017 9:04pm Urine Clarity Clear 03/16/2017 7:45pm 03/16/2017 9:04pm Urine pH 5.5 5.0 - 8.0 03/16/2017 7:45pm 03/16/2017 9:04pm Urine Specific [place] 1.010 1.005-1.030 03/16/2017 7:45pm 2016 9:04pm Urine Protein Negative Negative 03/16/2017 7:45pm 03/16/2017 9:04pm Urine Glucose (UA) 2+ H Negative 03/16/2017 7:45pm 03/16/2017 9:04pm Urine Blood Negative Negative 03/16/2017 7:45pm 03/16/2017 9:04pm Urine Ketones 1+ H Negative 03/16/2017 7:pm 03/16/2017 9:04pm Urine Nitrite Negative Negative 03/16/2017 7:45pm 03/16/2017 9:04pm Urine Bilirubin Negative Negative 03/16/2017 7:4503/16/2017 9: 04pm Urine Urobilinogen 0.2 mg/dL 0.2-1.0 03/16/2017 7:4503/16/2017 9: 04pm Urine Leukocyte Esterase Negative Negative 03/16/2017 7:2016 9:04pm Sodium Level 139 mmol/L 135-150 03/16/2017 7:03/16/2017 8:08pm Potassium Level 3.8 mmol/L 3.5-5.1 03/16/2017 7:03/16/2017 8:08pm Chloride Level 104 mmol/L 98-108 03/16/2017 7:03/16/2017 8:08pm Carbon Dioxide Level 22 mmol/L 22-29 03/16/2017 7:03/16/2017 8: 08pm Anion Gap 17.1 MEQ/L H 3-15 03/16/2017 7:03/16/2017 8:08pm Blood Urea Nitrogen 12 mg/dL 7-18 03/16/2017 7:03/16/2017 8:08pm Creatinine 0.57 mg/dL L 0.6-1.2 03/16/2017 7:03/16/2017 8:08pm BUN/Creatinine Ratio 21 H 10-20 03/16/2017 7:03/16/2017 8:08pm Estimat Glomerular Filtration Rate 140.1 03/16/2017 7:2016 8:08pm Estimated GFR (Non- 115.8 03/16/2017 7:2016 8:08pm Glucose Level 206 mg/dL # H 70-110 03/16/2017 7:03/16/2017 8:08pm Calculated Osmolality 275 mosm/L L 280-300 03/16/2017 7:03/16/2017 8:08pm Calcium Level 9.4 mg/dL 8.8-10.8 03/16/2017 7:03/16/2017 8:08pm Calcium/Ionized Calcium Ratio 4.1 mg/dL 3.8-4.6 03/16/2017 7:03/16 8:08pm Total Bilirubin 0.6 mg/dL 0.1-1.0 03/16/2017 7:03/16/2017 8:08pm Alkaline Phosphatase 126 U/L 38-126 03/16/2017 7:03/16/2017 8: 08pm Aspartate Amino Transf (AST/SGOT) 18 U/L 15-37 03/16/2017 7:2016 8:08pm Alanine Aminotransferase (ALT/SGPT) 41 U/L 30-65 03/16/2017 7: 8:08pm Total Protein 7.3 g/dL 6.4-8.5 03/16/2017 7:03/16/2017 8:08pm Albumin 4.3 g/dL 3.4-5.0 03/16/2017 7:03/16/2017 8:08pm Albumin/Globulin Ratio 1.433 1.1-1.8 03/16/2017 7:03/16/2017 8: 08pm C-Reactive Protein 0.80 mg/dL 0.0-0.9 03/16/2017 7:03/16/2017 8: 08pm Pending Laboratory Results Test Name Collection Date/Time Procedures No known history of procedures. Encounters Encounter Location Arrival/Admit Date Discharge/Depart Date Attending Provider Departed Emergency Room [facility] 03/21/17 5:09pm 03/21/17 8:13pm HÉCTOR WALKER MD Departed Emergency Room [facility] 03/20/17 12:29am 03/20/17 2:35am HÉCTOR WALKER MD Departed Emergency Room [facility] 03/16/17 6:18pm 03/16/17 9:33pm HÉCTOR WALKER MD Recent Diagnosis
--- NOTE | 2017-03-30 20:51 | NUR ---
Ice pack applied to pt's neck per request.
[2017-03-30] MEDS ORDERED: ONDANSETRON 2 MG/ML (Z0FRAN) 2 ML VIAL IV ONE (21:00)
[2017-03-30] MEDS ORDERED: DEXAMETHASONE 10 MG/ML (DECADRON) VIAL IV ONE (21:00)
[2017-03-30] MEDS ORDERED: diphenhydrAMINE 50 MG/ML INJ (BENADRYL) IV ONE (21:00)
[2017-03-30] MEDS ORDERED: MEPERIDINE 50 MG/ML (DEMEROL) SYRINGE IV ONE (21:00)
[2017-03-30] MEDS ORDERED: SODIUM CHLORIDE FLUSH 10 ML SYR IV PRN (21:00)
[2017-03-30] MEDS ORDERED: PROMETHAZINE HCL INJ 25 MG in SODIUM CHLORIDE 25 ML IV ONE (21:45)
[2017-03-30] MEDS ORDERED: MEPERIDINE 25 MG/ML (DEMEROL) SYRINGE IV ONE (21:45)
--- NOTE | 2017-03-30 21:55 | NUR ---
2ND Ice pack applied to neck per pt's request.
[2017-03-30 22:22] VITALS: BP 135/71
== END 2017-03-30 22:20 | disposition home or self-care (01) ==
LOC: ED 20:40
DX: G43.809 Other migraine, not intractable, without status migrainosus (principal)
CPT/HCPCS: 96365; 96375; 96376; 99283; J1100; J1200; J2175; J2405; J2550; 99282

== ENCOUNTER 2017-04-05 17:50 | Emergency (ER) | payer BC ==
[~2017-04-05] VITALS: Ht 167.6 cm; Wt 114.2 kg
[2017-04-05] MEDS: DEXAMETHASONE 4 MG/ML (DECADRON) 5ml VIAL IV ONE (20:06)
[2017-04-05] MEDS: METOCLOPRAMIDE 10 MG/2 ML (REGLAN) VIAL IV ONE (20:06)
[2017-04-05] MEDS: diphenhydrAMINE 50 MG/ML INJ (BENADRYL) IV ONE (20:06)
[2017-04-05] MEDS: HALOPERIDOL 5 MG/ML (HALDOL) 1 ML AMP IV ONE (20:06)
--- NOTE | 2017-04-05 20:20 | NUR ---
Pt states she does not want to wait for IV fluids to infuse. States "I just want to go home and go to bed". Dr. Diez notified.
[2017-04-05 20:36] VITALS: BP 110/38
== END 2017-04-05 20:30 | disposition home or self-care (01) ==
LOC: ED 17:51
DX: G43.909 Migraine, unspecified, not intractable, without status migrainosus (principal)
CPT/HCPCS: 96374; 96375; 99283; J1100; J1200; J1630; J2765; J7030; 99282